=== PATIENT | male | born 1970 | race Caucasian/White ===

== ENCOUNTER 2020-06-30 06:51 | Observation (INO) ==
--- NOTE | 2020-06-24 15:30 | Anesthesiology Consultation ---
Date of Service June 24, 2020 Assessment & Plan (1) Encounter for pre-operative examination: - COVID screening: Per assessment on 06/09: Travel screen negative (since 05/10), no known COVID-19 positive contacts or current COVID-19 related symptoms. Surg [place] arranging preop COVID testing (scheduled 06/24; [facility]). Awaiting results. - PCP clearance request 03/07/20: "yes" patient medically cleared for surgery. Chart Review Chart Review: Acceptable Risk for Surgery (pending preop labs) and Patient NOT seen in Pre Admission Testing History Surgery Operation Date: 06/30/20 11:55 Proposed Procedures p Right Total Hip Arthroplasty - Miraz Villeda MD Height/Weight Height: 6 ft 1 in Weight: 112.491 kg Allergies Allergy/AdvReac Type Severity Reaction Status Date / Time ranitidine Allergy Unknown Hives Verified 06/09/20 09:10 Medications Home Medications Medication Instructions Recorded Confirmed Last Taken acetaminophen [Tylenol Extra 1,000 mg PO UD PRN 09/14/19 06/09/20 Unknown Strength] amlodipine 5 mg PO QAM 09/14/19 06/09/20 06/07/20 fluticasone propionate [Flonase 1 - 2 spray INTRANASAL UD PRN 09/14/19 06/09/20 Unknown Allergy Relief] gabapentin 300 mg PO TID 09/14/19 06/09/20 06/08/20 08:00 ibuprofen 400 mg PO UD PRN 09/14/19 06/09/20 06/04/20 lisinopril 10 mg PO BID 02/24/20 06/09/20 06/07/20 Past Medical History Medical History (Updated 06/24/20 @ 15:25 by Daja Perez) Degenerative disc disease cervical Depression stable HTN (hypertension) Low back pain Obesity Seasonal allergies Spondylolisthesis, lumbar region Past Family History Family History Mother Family history of diabetes mellitus Past Surgical History Surgical History History of colonoscopy History of nasal septoplasty History of total left knee replacement History of vasectomy Social History Smoking Status: Current some day smoker tobacco type: cigars Smoking cigarettes per day: 1 cigar every 3-4 months Do You Dip or Chew Tobacco: Yes (light use > not daily- PAT RN advised none AM DOS) Hx Alcohol Use: Yes Alcohol type: beer, wine and hard liquor alcohol intake frequency: 0-2 drinks per day (1-2 drinks liquor per day*) Hx Substance Use: No substance use type: does not use Testing Electrocardiogram Date: 02/01/20 Findings: + NSR @ (65) Echocardiogram Date: 02/26/20 EF: 55-60% LV Function: normal Other Findings: + LVH (mild/concentric) Valvular Disease: + no significant valvular disease Mild pulmonary hypertension with estimated right ventricular/pulmonary artery systolic pressure of 32.4 mmHg.
--- NOTE | 2020-06-29 12:15 | History & Physical Report ---
Date of Service June 29, 2020 Assessment & Plan Admission and Anticipated Discharge Date Admission Date: PRE-OP Diagnosis: Right hip osteoarthritis Planned Procedure: Right total hip arthroplasty Plan: Patient is scheduled to undergo this procedure with Dr. Mirza Villeda at the [facility] on June 30, 2020. Risks and complications of the procedure such as infection, bleeding, pain, scarring, nerve blood vessel damage, weakness, wound problems, stiffness, incomplete relief of symptoms, hardware failure, hardware loosening, wear, fracture, tendon or ligament injury, dislocation, leg length inequality, blood clots, embolism, heart attack, stroke and were explained to the patient his visit today by Dr. Villeda. Informed consent form the procedure was obtained. Patient also understands risks of proceeding with surgical intervention during the COVID-19 pandemic. Currently he is asymptomatic and understands he will be tested prior to the procedure. We have obtained preoperative medical clearance from [facility] Dr. Stephon Myrick. Patient will proceed to the lab immediately to obtain a CBC with differential, a complete metabolic panel, PT/INR, urinalysis, urine culture and sensitivity, hemoglobin A1c, and a nasal culture for MRSA. His EKG is up to date. During today's visit we reviewed the total hip packet with his precautions, discussed discharge planning, talked about antibiotic use following total joint surgery, discussed lectures offered by [facility] in regards to arthroplasty and I provided the patient with paperwork to obtain a handicap placard for his vehicle. I also advised him to purchase a hip kit prior to the procedure and he states that he purchased after his last preoperative visit. Patient states that he has already has a walker, raised toilet seat and a shower chair. Patient was also advised that we will provide him with a prescription for narcotic pain medication upon discharge from the hospital for postoperative pain control. He will be on aspirin for DVT prophylaxis along with diclofenac sodium and Tylenol for additional pain relief. Patient is scheduled for his 2-week postoperative follow-up with myself on July 15 at 2:15 PM. Patient states that he will most likely obtain in-house physical therapy for the first 2 weeks after surgery. Patient verbalized understanding all information provided during today's visit. He thanks for the care that he received. Patient states if he has questions or concerns should arise prior to his surgery, he will contact clinic. History of Present Illness Chief Complaint: Right hip pain Primary Care Provider: Stephon Myrick DO History of Present Illness (including history relevant to procedure): This 50-year-old male presents the clinic today for his preoperative history and physical. Patient complains of a 1+ year history of significant right hip pain that became much worse this past June. Patient has not undergone extensive physical therapy, corticosteroid injections, the use of nonsteroidal agents without significant relief of his symptoms. He feels it laterally and extending anteriorly into the groin. In June, he felt a pop in the hip. Since that time, a couple of times a week, he will be standing and shift his weight and feels a pop in the groin. He is having trouble taking off his socks and shoes as well as putting on his pants and taking them off. Sitting for long periods of times is extremely uncomfortable for him, especially when he gets up. It is significantly affecting his quality of life and he is interested in his surgical options. Patient was initially scheduled for surgery on March [id number], however surgery was delayed due to an influx of Covid patients at the hospital. Review Of Systems: 14 point review of systems performed is unremarkable except for those things previously stated in the HPI and past medical history. Past Medical History: Problems: Osteoarthritis of right hip Pre-op exam Right hip pain Trochanteric bursitis, right hip Tobacco user Right lumbar radiculopathy Spondylolisthesis, lumbosacral region Procedure History Procedure Procedure Date Comments Lumbar epidural steroid injection 06/08/2020 Allergies and Sensitivities: Zantac(Hives) Family history: Hypertension Social history: Completely unremarkable Current Home Meds: (Last Updated 06/15 10:20) FLUoxetine (PROzac) 10 mg PO 2 a day amLODIPine (amLODIPine 5 mg oral tablet) TAKE 1 TABLET DAILY (DOSE CHANGE) cyclobenzaprine (cyclobenzaprine 10 mg oral tablet) PRN fluticasone nasal (Flonase) gabapentin (Neurontin 300 mg oral capsule) 300 mg PO tid lisinopril (lisinopril 10 mg oral tablet) 20 mg PO Daily Start one TAB per day for first week Plan: Patient is scheduled to undergo this procedure with Dr. Mirza Villeda at the [facility] on June 30, 2020. Risks and complications of the procedure such as infection, bleeding, pain, scarring, nerve blood vessel damage, weakness, wound problems, stiffness, incomplete relief of symptoms, hardware failure, hardware loosening, wear, fracture, tendon or ligament injury, dislocation, leg length inequality, blood clots, embolism, heart attack, stroke and were explained to the patient his visit today by Dr. Villeda. Informed consent form the procedure was obtained. Patient also understands risks of proceeding with surgical intervention during the COVID-19 pandemic. Currently he is asymptomatic and understands he will be tested prior to the procedure. We have obtained preoperative medical clearance from the patient's primary care provider Dr. Stephon Myrick. Patient will proceed to the lab immediately to obtain a CBC with differential, a complete metabolic panel, PT/INR, urinalysis, urine culture and sensitivity, hemoglobin A1c, and a nasal culture for MRSA. His EKG is up to date. During today's visit we reviewed the total hip packet with his precautions, discussed discharge planning, talked about antibiotic use following total joint surgery, discussed lectures offered by [facility] in regards to arthroplasty and I provided the patient with paperwork to obtain a handicap placard for his vehicle. I also advised him to purchase a hip kit prior to the procedure and he states that he purchased after his last preoperative visit. Patient states that he has already has a walker, raised toilet seat and a shower chair. Patient was also advised that we will provide him with a prescription for narcotic pain medication upon discharge from the hospital for postoperative pain control. He will be on aspirin for DVT prophylaxis along with diclofenac sodium and Tylenol for additional pain relief. Patient is scheduled for his 2-week postoperative follow-up with myself on July 15 at 2:15 PM. Patient states that he will most likely obtain in-house physical therapy for the first 2 weeks after surgery. Patient verbalized understanding all information provided during today's visit. He thanks for the care that he received. Patient states if he has questions or concerns should arise prior to his surgery, he will contact clinic. Allergies Allergy/AdvReac Type Severity Reaction Status Date / Time ranitidine Allergy Unknown Hives Verified 06/09/20 09:10 Home Medications Medication Instructions Recorded Confirmed Type acetaminophen [Tylenol Extra 1,000 mg PO UD PRN 09/14/19 06/09/20 History Strength] amlodipine 5 mg PO QAM 09/14/19 06/09/20 History fluticasone propionate [Flonase 1 - 2 spray INTRANASAL UD PRN 09/14/19 06/09/20 History Allergy Relief] gabapentin 300 mg PO TID 09/14/19 06/09/20 History ibuprofen 400 mg PO UD PRN 09/14/19 06/09/20 History lisinopril 10 mg PO BID 02/24/20 06/09/20 History Past Med/Surg History Medical History Degenerative disc disease cervical Depression stable HTN (hypertension) Low back pain Obesity Seasonal allergies Spondylolisthesis, lumbar region Surgical History History of colonoscopy History of nasal septoplasty History of total left knee replacement History of vasectomy Family History Mother Family history of diabetes mellitus Social History Smoking Status: Current some day smoker Cigarettes Per Day: 1 cigar every 3-4 months; Second Hand Exposure: No; Hx Alcohol Use: Yes Alcohol type: beer, wine and hard liquor Hx Substance Use: No Preferred Language: Lao Communication Ability: Effective Warp Drawer Required: No Beliefs That Will Affect Care: None Current Living Situation: Spouse Feels Safe at Home: Yes Assistive Devices: None Review of Systems All systems reviewed & are unremarkable except as noted in HPI & below Physical Exam Physical Exam: General: Alert and oriented x3 with proper grooming and hygiene Eyes: Pupils are equal and react to light with accommodation. Extraocular movements are intact Throat: Deferred due to COVID-19 precautions Cardiac: Regular rate and rhythm with no murmurs or gallops appreciated Lungs: Clear to auscultation throughout with no wheezing, rales or rhonchi Abdomen: Obese, nondistended, nontender with normal active bowel sounds Extremities: hip flexion up to 85 degrees compared with 125 degrees in the other side. External rotation is limited to 30 degrees versus 50 degrees on the other side. Internal rotation is to 5 degrees versus 15 degrees on the other side. He has a positive Stinchfield test. Positive ROBERTO test. Distally neurovascularly intact. Neuro: Cranial nerves II through XII are intact with no motor or sensory deficit Skin: Normal in appearance no open skin areas or discharge Results & Data ([facility]) Diagnostic Findings Studies (relevant to the procedure): X-rays done today, 3 views of the right hip, are compared with his films done 1 year ago. There has been interval complete loss of his superior joint space and he has now [id number] arthritis in the right hip.
[~2020-06-30 06:51] MED LIST: ACETAMINOPHEN 500 MG TAB PO SCH; BUPIVACAINE 0.5 % 5 MG/1 ML PF 10ML VIAL ONE; CeleBREX 200 MG CAP PO SCH; LR 500ML BOLUS, THEN 15ML/HR IV SCH; LR 60ML/HR IV SCH; METOCLOPRAMIDE HCL 10 MG TABLET PO SCH; ROPIVACAINE 0.5% HCL/PF 150 MG, BUPIVACAINE 0.75% MPF 20 ML, EPINEPHrine 0.15 MG, Ketor... INFIL SCH; Scopolamine 1 MG TDSY TD SCH; TRANEXAMIC ACID 1,000 MG **IV Intra-op IV SCH; TRANEXAMIC ACID 1,000 MG **IV Pre-op IV SCH; ceFAZolin 2000MG 2,000 MG/15 ML SYR IV SCH; dexAMETHasone 4 MG TAB PO SCH; traMADol HCL 50 MG TABLET PO SCH
[2020-06-30] MEDS ORDERED: LIDOCAINE HCL 2% 2 ML VIAL/AMP(20MG/ML) INFIL ONE (07:36)
[2020-06-30] MEDS ORDERED: MIDAZOLAM HCL 1 MG/ML 2ML VIAL ONE ×3 (07:36→10:13)
[2020-06-30] MEDS ORDERED: PROPOFOL IV EMULSION 10 MG/ML 20 ML VIAL IV ONE ×2 (07:36→10:42)
[2020-06-30] MEDS ORDERED: ATROPINE SULFATE 0.1 MG/ML 10ML SYR IV PRN (08:35)
[2020-06-30] MEDS ORDERED: fentaNYL citrate 100 MCG/2 ML VIAL IV PRN (08:35)
[2020-06-30] MEDS ORDERED: HYDROmorphone INJ 2 MG/ML SYR/VIAL IV PRN (08:35)
[2020-06-30] MEDS ORDERED: ePHEDrine sulfate 50 MG/ML AMP IV PRN (08:35)
[2020-06-30] MEDS ORDERED: ONDANSETRON INJ 2 MG/ML 2 ML VIAL IV PRN ×2 (08:35→11:09)
--- NOTE | 2020-06-30 08:53 | History & Physical Bridge Note ---
Date of Service June 30, 2020 History & Physical Bridge Note I have examined the patient, reviewed the History & Physical and in the interval since the performance of the History & Physical I have noted the following changes of clinical significance: no changes noted
[2020-06-30] MEDS ORDERED: ORTHO JOINT ANESTHETIC ONE (09:06)
[2020-06-30] MEDS ORDERED: PHENYLEPHRINE 100MCG/ML 5ML SYR ONE (10:08)
--- NOTE | 2020-06-30 10:57 | Operative Report ---
Post Operative Report Pre & Post Diagnosis Operation Date: 06/30/20 09:35 Pre-Op Diagnosis: Right Hip Osteoarthritis Post-Op Diagnosis: Right Hip Osteoarthritis I identified the patient and participated in the time-out.: Yes Procedure Operation Date: 06/30/20 09:35 Actual Procedures p Right Total Hip Arthroplasty(Right) - Mirza Villeda MD Surgeon Mirza Villeda MD Respiratory Tech ELADIA Dyer PA-C Estimated Blood Loss 150 Findings Consistent with Post-Op Diagnosis Specimens Right femoral head Anesthesia Type Spinal MAC Complications none Disposition Accompanied Patient To Recovery: No Disposition: Recovery Room Indications 50-year-old male with right hip arthritis refractory to conservative management. X-rays demonstrate [id number] arthritis. Affecting his activities of daily living. I had a long discussion with him about the risks and benefits of surgery, alternatives to surgery, and expected outcomes. After reviewing all these he elected to proceed with surgery. All questions were answered. Informed consent was signed. Description of Procedure Patient was identified in the preoperative holding area and the surgical site, right hip, was marked. A spinal anesthetic was placed, then the patient was brought back to the main operating room, placed in the operating table and moved into the lateral decubitus position. Axillary roll was placed. All bony prominences were padded. Perioperative antibiotics and tranexamic acid 1 gram IV were administered. Operative extremity was prepped and draped in the normal sterile fashion. Prior to incision a multidisciplinary timeout was called. All in the room were in agreement. We began by making an incision for a posterior approach to the hip. We dissected down through subcutaneous tissues to the level of the fascia. The fascia was incised in line with the incision. Charnley bow was placed. The trochanteric bursa was excised. The piriformis and short external rotators were dissected off the posterior aspect of the hip. A box cut was made in the capsule. The femoral head was dislocated. The femoral neck cut was made at our preoperative template. The acetabulum was then exposed. The labrum was sharply excised. Contents of the cotyloid fossa were removed with electrocautery. We then began reaming at a size 8 mm less than our preoperative template. We reamed up by 1 [address] the way up to a size 56 mm cup. This gave us good bleeding cancellus bone circumferentially. The acetabulum was then irrigated out and dried. The real [place] Gription cup was then impacted down into position with 45 degrees of lateral opening and 25 degrees of anteversion. A single cancellous bone screw was placed up into the ilium. Excellent fixation was obtained. An Altrx polyethylene liner for a 36 mm femoral head was then impacted into the shell. The locking mechanism was checked to ensure that it had engaged which it had. Next we turned our attention to the femur. The lateral neck was removed with a box osteotome. Intramedullary guide was used followed by the lateralizing reamer. We then reamed up to a size 6 [place] stem. We then broached all the way up to a size 6. We began trialing with a high offset neck and a +5 head. Hip was reduced. Leg lengths were symmetric. The hip was stable in extension and external rotation, and stable in the sleeper position. At 90 degrees of hip flexion the hip could be internally rotated 65 degrees before levering out of the cup. I was very happy with the stability exam. Therefore the hip was disl ocated and the femoral trial was removed. The femoral canal was irrigated and dried. The real size 6 high offset [place] femoral stem was opened up. This was impacted down into position. It sat at the same level as the femoral trial. Therefore the 36 mm ceramic femoral head with a +5 mm offset was opened up and gently impacted down onto the trunnion. The hip was atraumatically reduced. Another 1 gram of IV tranexamic acid was started prior to closure. The wound was irrigated out with sterile Betadine solution. The periarticular injection cocktail was then placed. The short external rotators, piriformis, and posterior capsule were repaired through drill holes in the greater trochanter using #2 Vicryl. The fascia was run with a looped #1 PDS. The subcutaneous layer was closed with #1 PDS. The dermal layer was closed with 2-0 Vicryl. Zip line was used for the skin followed by a Silverlon dressing. A compressive dressing was then placed. The patient was then rolled supine. Leg lengths were rechecked and were symmetric. An abduction pillow was placed. Sedation was lifted and the patient was transferred to recovery room in stable condition. Summary of implants: Depuy [place] Gription Acetabular Shell Sector Cup, 56 mm outer diameter [place] Cancellous bone screw, 6.5 x 40 mm [place] Altrx Polyethylene Acetabular Liner, Neutral, with a 36 mm inner diameter DePuy [place] Femoral stem with Por[place]oat, 12/14 taper, size 6 high offset 36 mm ceramic femoral head with +5 offset Postoperative course: Patient will be admitted to the hospital from the recovery room. Patient will be weightbearing as tolerated with posterior hip precautions. Aspirin for DVT prophylaxis I attest to the content of the Intraoperative Record and any orders documented therein. Any exceptions are noted below.
--- NOTE | 2020-06-30 11:08 | Operative Report ---
Post Operative Report Pre & Post Diagnosis Operation Date: 06/30/20 09:35 Pre-Op Diagnosis: Right Hip Osteoarthritis Post-Op Diagnosis: Right Hip Osteoarthritis I identified the patient and participated in the time-out.: Yes Procedure Operation Date: 06/30/20 09:35 Actual Procedures p Right Total Hip Arthroplasty(Right) - Mirza Villeda MD Surgeon Mirza Villeda MD Preparing Box Tender ELADIA Dyer PA-C Estimated Blood Loss 150 Findings Consistent with Post-Op Diagnosis Specimens femoral head Complications none Disposition Accompanied Patient To Recovery: Yes Disposition: Recovery Room Description of Procedure I was present during the entire case assisting with positioning, prepping, draping, wound retraction, wound closure, dressing and abduction pillow placement. No fellow present. Please see Dr. Villeda procedure note for specifics of the case. I attest to the content of the Intraoperative Record and any orders documented therein. Any exceptions are noted below.
[2020-06-30] MEDS ORDERED: ALUMINUM/MAGNESIUM SUSP 30 ML UDC PO PRN (11:09)
[2020-06-30] MEDS ORDERED: NALOXONE HCL 0.4 MG/1 ML VIAL/CARP IV PRN (11:09)
[2020-06-30] MEDS ORDERED: oxyCODONE HCL IR 5 MG TAB (IMMEDIATE RELEASE) PO PRN (11:09)
[2020-06-30] MEDS ORDERED: bisacodyL 10 MG SUPP PR PRN (11:09)
[2020-06-30] MEDS ORDERED: METOCLOPRAMIDE HCL INJ 5 MG/ML 2 ML VIAL IV PRN (11:09)
[2020-06-30] MEDS ORDERED: HYDROmorphone INJ 0.5 MG/0.5 ML SYR IV PRN (11:09)
[2020-06-30] MEDS ORDERED: MAGNESIUM HYDROXIDE SUSP 30 ML UDC PO PRN (11:09)
[2020-06-30] MEDS ORDERED: diphenhydrAMINE 50 MG/ML VIAL IV PRN (11:09)
[2020-06-30] MEDS ORDERED: TAMSULOSIN HCL 0.4 MG CAP PO PRN (11:09)
[2020-06-30] MEDS ORDERED: FLUTICASONE PROPIONATE NA SPR 16 GM BTL NAE PRN (11:12)
[2020-06-30] MEDS ORDERED: ACETAMINOPHEN HOME PACK 500 MG TABLET PO PRN (11:12)
[2020-06-30] MEDS ORDERED: IBUPROFEN 200 MG TAB PO PRN (11:12)
--- NOTE | 2020-06-30 11:40 | XRay Report ---
XR pelvis 1-2V routine CLINICAL HISTORY: Post Surgical COMPARISON: 03/04/2020 DISCUSSION: There are postsurgical changes of a total right hip arthroplasty. There is no dislocation . IMPRESSION: Postsurgical changes of a total right hip arthroplasty. ACT 112: Negative or not required by law. Electronically signed by: Frederic Gregg M.D. 06/30/2020 11:38 AM
--- NOTE | 2020-06-30 11:56 | Anesthesiology Progress Note ---
Date of Service June 30, 2020 Anesthesia Post Procedure Vital Signs Vital Signs: Temp Pulse Pulse Resp BP BP Pulse Ox 06/30/20 11:45 60 22 107/67 95 06/30/20 11:30 64 20 110/69 95 06/30/20 11:20 64 16 100/58 L 97 06/30/20 11:10 66 20 102/64 95 06/30/20 11:05 36.6 C 72 20 112/69 96 06/30/20 07:50 36.8 C 60 18 137/88 97 06/30/20 07:26 37.6 C H 60 18 140/102 H 97 Pain Intensity Right Hip: Pain Intensity: 7 Transfer of Care Handoff Completed per policy Notes Mental Status: alert / awake / arousable and participated in evaluation Patient Amnestic to Procedure: Yes Nausea / Vomiting: adequately controlled Pain: adequately controlled Airway Patency, RR, SpO2: stable & adequate BP & HR: stable & adequate Hydration State: stable & adequate Neuraxial Anesthesia: was administered and sensory block is resolving Anesthetic Complications: no major complications apparent
[2020-06-30] MEDS ORDERED: PHENYLEPHRINE HCL 10 MG/ML VIAL ONE (12:29)
[2020-06-30] MEDS: SODIUM CHLORIDE 0.9% 1000ML 1,000 ML IV SCH ×2 (12:30→22:09)
[2020-06-30] MEDS: KETOROLAC TROMETHAMINE 15 MG/ML VIAL IV SCH ×2 (14:52→20:55)
[2020-06-30] MEDS: GABAPENTIN 300 MG CAP PO SCH ×2 (14:52→20:55)
[2020-06-30] MEDS: ACETAMINOPHEN 500 MG TAB PO SCH ×2 (14:52→20:56)
[2020-06-30] MEDS: Scopolamine CHECK PATCH PLACEMENT SCH ×2 (16:52→23:24)
[2020-06-30] MEDS: ceFAZolin 2000MG 2,000 MG/15 ML SYR IV SCH (17:52)
[2020-06-30] MEDS ORDERED: TRANEXAMIC ACID / 0.7% NACL 1,000 MG/100 ML BAG IV SCH (18:00)
[2020-06-30] MEDS: DOCUSATE SODIUM 100 MG CAP PO SCH (20:55)
[2020-06-30] MEDS: lisinopril 10 MG TAB PO SCH (20:55)
[2020-06-30] MEDS: ASPIRIN 81 MG ECTAB PO SCH (20:55)
[2020-06-30] MEDS ORDERED: CeleBREX 200 MG CAP PO SCH (21:00)
[2020-06-30] MEDS ORDERED: SENNA 8.6 MG TAB PO SCH (21:00)
[2020-07-01] MEDS: KETOROLAC TROMETHAMINE 15 MG/ML VIAL IV SCH ×2 (01:05→08:21)
[2020-07-01] MEDS: ceFAZolin 2000MG 2,000 MG/15 ML SYR IV SCH (01:05)
[2020-07-01] MEDS: ACETAMINOPHEN 500 MG TAB PO SCH (06:02)
[2020-07-01 06:28] LABS: Basophils # (auto) 0.01 K/uL (0-0.2); Basophils % (auto) 0.1 %; Hematocrit (blood only) 36.3 % (42-52); Hemoglobin 12.6 g/dL (14.0-18.0); Immature Granulocytes # (auto) 0.02 K/uL (0.00-0.02); Immature Granulocytes % (auto) 0.2 %; Lymphocytes # (auto) 1.67 K/uL (1.2-3.4); Lymphocytes % (auto) 13.8 %; Mean Corpuscular Hemoglobin 30.4 pg (25-34); Mean Corpuscular Hgb Conc 34.7 g/dL (32-36); Mean Corpuscular Volume 87.5 fL (80-100); Mean Platelet Volume 10.1 fL (7.4-10.4); Monocytes # (auto) 0.93 K/uL (0.11-0.59); Monocytes % (auto) 7.7 %; Neutrophils # (auto) 9.51 K/uL (1.4-6.5); Neutrophils % (auto) 78.2 %; Platelet Count 220 K/uL (130-400); RDW Coefficient of Variation 12.6 % (11.5-14.5); RDW Standard Deviation 40.6 fL (36.4-46.3); Red Blood Count 4.15 M/uL (4.7-6.1); White Blood Count 12.14 K/uL (4.8-10.8)
[2020-07-01 07:07] LABS: BUN Creatinine Ratio 15.6 (10-20); Calcium 8.9 mg/dl (8.5-10.1); Creatinine Clr Calc Pharmacy 97.3 ml/min; Est GFR (African American) 81.7; Est GFR (Non-African American) 70.5; Potassium 3.9 mmol/L (3.5-5.1)
[2020-07-01] MEDS ORDERED: dexAMETHasone 4 MG TAB PO SCH (08:00)
[2020-07-01] MEDS: Scopolamine CHECK PATCH PLACEMENT SCH (08:21)
[2020-07-01] MEDS: DOCUSATE SODIUM 100 MG CAP PO SCH (08:22)
[2020-07-01] MEDS: GABAPENTIN 300 MG CAP PO SCH (08:22)
[2020-07-01] MEDS: lisinopril 10 MG TAB PO SCH (08:22)
[2020-07-01] MEDS: ASPIRIN 81 MG ECTAB PO SCH (08:23)
[2020-07-01] MEDS ORDERED: amLODIPine BESYLATE 5 MG TAB PO SCH (09:00)
[2020-07-01] MEDS ORDERED: MULTIVITAMIN TAB PO SCH (09:00)
--- NOTE | 2020-07-01 10:42 | Orthopedic Progress Note ---
Date of Service July 01, 2020 Assessment & Plan (1) S/P total hip arthroplasty: Weightbearing as tolerated with walker assistance PT/OT Keep Silverlon dressing intact Total hip precautions Abduction pillow use x6 weeks Pain control with p.o. medication DVT prophylaxis with aspirin and LISA stockings Ice with EZ WRAP Discharge home today with in-home therapy with [facility] home care Follow-up with [facility] orthopedics as previously scheduled With questions contact our clinic at [phone] Admission and Anticipated Discharge Date Admission Date: June 30, 2020 Subjective This 50-year-old male is day 1 status post right total hip arthroplasty. He states he is doing very well and his pain is essentially 0. He states he has completed physical therapy and occupational therapy this morning without difficulty. States that he will be ready to go home after lunch today. Currently he denies fever, chills, sweats, lethargy, chest pain, shortness of breath or numbness or tingling in his right lower extremity. Review of Systems Review of Systems: All systems reviewed & are unremarkable except as noted in Subjective Physical Exam Physical Exam: Right hip: Silverlon dressing is clean dry and intact. Patient is able to perform a straight leg raise test without difficulty. He is able to actively dorsi and plantarflex his foot without difficulty. Logroll test is negative. Stinchfield test negative. Knee range of motion from 0 to 90 degrees causes no pain. Quad strength is 4-5. Light passive internal and external hip rotation causes some slight twinge of pain. Patient's calf soft supple nontender to palpation. He is able to easily transition from a seated to a standing position. He is neurovascularly intact the right lower extremity. Peripheral pulses are 2+. Capillary refill is less than 2 seconds. Results & Data ([facility]) Vital Signs (Past 12 Hours) Vital Signs Temp Pulse Pulse Resp BP Pulse Ox 07/01/20 08:24 56 L 07/01/20 08:08 36.6 C 44 L 18 112/71 95 07/01/20 04:22 36.6 C 62 16 115/71 96 06/30/20 23:23 36.6 C 59 L 16 110/68 99 Laboratory Results 07/01/20 07/01/20 Range/Units 05:58 05:58 WBC 12.14 H (4.8-10.8) K/uL RBC 4.15 L (4.7-6.1) M/uL Hgb 12.6 L (14.0-18.0) g/dL Hct 36.3 L (42-52) % MCV 87.5 (80-100) fL MCH 30.4 (25-34) pg MCHC 34.7 (32-36) g/dL RDW Std Deviation 40.6 (36.4-46.3) fL RDW Coeff of Francisca 12.6 (11.5-14.5) % Plt Count 220 (130-400) K/uL MPV 10.1 (7.4-10.4) fL Immature Gran % (Auto) 0.2 % Neut % (Auto) 78.2 % Lymph % (Auto) 13.8 % [place] % (Auto) 7.7 % Eos % (Auto) 0.0 % Baso % (Auto) 0.1 % Neut # (Auto) 9.51 H (1.4-6.5) K/uL Lymph # (Auto) 1.67 (1.2-3.4) K/uL [place] # (Auto) 0.93 H (0.11-0.59) K/uL Eos # (Auto) 0.00 (0-0.5) K/uL Baso # (Auto) 0.01 (0-0.2) K/uL Immature Gran # (Auto) 0.02 (0.00-0.02) K/uL Sodium 140 (136-145) mmol/L Potassium 3.9 (3.5-5.1) mmol/L Chloride 110 H (98-107) mmol/L Carbon Dioxide 22 (21-32) mmol/L Anion Gap 8.0 (3-11) BUN 18 (7-18) mg/dl Creatinine 1.18 (0.6-1.4) mg/dl Est Cr Clr Drug Dosing 97.3 ml/min Est GFR ( Amer) 81.7 Est GFR (Non-Af Amer) 70.5 BUN/Creatinine Ratio 15.6 (10-20) Glucose 113 H (70-99) mg/dl Calcium 8.9 (8.5-10.1) mg/dl
--- NOTE | 2020-07-01 10:58 | Discharge Summary ---
Date of Service July 01, 2020 Admission HPI Per Admitting Provider History of Present Illness (including history relevant to procedure): This 50-year-old male presents the clinic today for his preoperative history and physical. Patient complains of a 1+ year history of significant right hip pain that became much worse this past June. Patient has not undergone extensive physical therapy, corticosteroid injections, the use of nonsteroidal agents without significant relief of his symptoms. He feels it laterally and extending anteriorly into the groin. In June, he felt a pop in the hip. Since that time, a couple of times a week, he will be standing and shift his weight and feels a pop in the groin. He is having trouble taking off his socks and shoes as well as putting on his pants and taking them off. Sitting for long periods of times is extremely uncomfortable for him, especially when he gets up. It is significantly affecting his quality of life and he is interested in his surgical options. Patient was initially scheduled for surgery on March [id number], however surgery was delayed due to an influx of Covid patients at the hospital. Review Of Systems: 14 point review of systems performed is unremarkable except for those things previously stated in the HPI and past medical history. Past Medical History: Problems: Osteoarthritis of right hip Pre-op exam Right hip pain Trochanteric bursitis, right hip Tobacco user Right lumbar radiculopathy Spondylolisthesis, lumbosacral region Procedure History Procedure Procedure Date Comments Lumbar epidural steroid injection 06/08/2020 Allergies and Sensitivities: Zantac(Hives) Family history: Hypertension Social history: Completely unremarkable Current Home Meds: (Last Updated 06/15 10:20) FLUoxetine (PROzac) 10 mg PO 2 a day amLODIPine (amLODIPine 5 mg oral tablet) TAKE 1 TABLET DAILY (DOSE CHANGE) cyclobenzaprine (cyclobenzaprine 10 mg oral tablet) PRN fluticasone nasal (Flonase) gabapentin (Neurontin 300 mg oral capsule) 300 mg PO tid lisinopril (lisinopril 10 mg oral tablet) 20 mg PO Daily Start one TAB per day for first week Plan: Patient is scheduled to undergo this procedure with Dr. Mirza Villeda at the [facility] on June 30, 2020. Risks and complications of the procedure such as infection, bleeding, pain, scarring, nerve blood vessel damage, weakness, wound problems, stiffness, incomplete relief of symptoms, hardware failure, hardware loosening, wear, fracture, tendon or ligament injury, dislocation, leg length inequality, blood clots, embolism, heart attack, stroke and were explained to the patient his visit today by Dr. Villeda. Informed consent form the procedure was obtained. Patient also understands risks of proceeding with surgical intervention during the COVID-19 pandemic. Currently he is asymptomatic and understands he will be tested prior to the procedure. We have obtained preoperative medical clearance from the patient's primary care provider Dr. Stephon Myrick. Patient will proceed to the lab immediately to obtain a CBC with differential, a complete metabolic panel, PT/INR, urinalysis, urine culture and sensitivity, hemoglobin A1c, and a nasal culture for MRSA. His EKG is up to date. During today's visit we reviewed the total hip packet with his precautions, discussed discharge planning, talked about antibiotic use following total joint surgery, discussed lectures offered by [facility] in regards to arthroplasty and I provided the patient with paperwork to obtain a handicap placard for his vehicle. I also advised him to purchase a hip kit prior to the procedure and he states that he purchased after his last preoperative visit. Patient states that he has already has a walker, raised toilet seat and a shower chair. Patient was also advised that we will provide him with a prescription for narcotic pain medication upon discharge from the hospital for postoperative pain control. He will be on aspirin for DVT prophylaxis along with diclofenac sodium and Tylenol for additional pain relief. Patient is scheduled for his 2-week postoperative follow-up with myself on July 15 at 2:15 PM. Patient states that he will most likely obtain in-house physical therapy for the first 2 weeks after surgery. Patient verbalized understanding all information provided during today's visit. He thanks for the care that he received. Patient states if he has questions or concerns should arise prior to his surgery, he will contact clinic. Admission Exam Per Admitting Provider General: Alert and oriented x3 with proper grooming and hygiene Eyes: Pupils are equal and react to light with accommodation. Extraocular movements are intact Throat: Deferred due to COVID-19 precautions Cardiac: Regular rate and rhythm with no murmurs or gallops appreciated Lungs: Clear to auscultation throughout with no wheezing, rales or rhonchi Abdomen: Obese, nondistended, nontender with normal active bowel sounds Extremities: hip flexion up to 85 degrees compared with 125 degrees in the other side. External rotation is limited to 30 degrees versus 50 degrees on the other side. Internal rotation is to 5 degrees versus 15 degrees on the other side. He has a positive Stinchfield test. Positive ROBERTO test. Distally neurovascularly intact. Neuro: Cranial nerves II through XII are intact with no motor or sensory deficit Skin: Normal in appearance no open skin areas or discharge Principal Diagnosis Right hip osteoarthritis Discharge Exam Right hip: Silverlon dressing is clean dry and intact. Patient is able to perform a straight leg raise test without difficulty. He is able to actively dorsi and plantarflex his foot without difficulty. Logroll test is negative. Stinchfield test negative. Knee range of motion from 0 to 90 degrees causes no pain. Quad strength is 4-5. Light passive internal and external hip rotation causes some slight twinge of pain. Patient's calf soft supple nontender to palpation. He is able to easily transition from a seated to a standing position . He is neurovascularly intact the right lower extremity. Peripheral pulses are 2+. Capillary refill is less than 2 seconds. Discharge Data Allergies Allergy/AdvReac Type Severity Reaction Status Date / Time ranitidine Allergy Unknown Hives Verified 06/30/20 07:22 Consultations 07/01/20 08:00 Consult Case Management - Discharge Planning Routine Procedures Performed Operation Date: 06/30/20 09:35 Actual Procedures p Right Total Hip Arthroplasty(Right) - Mirza Villeda MD Hospital Course (1) S/P total hip arthroplasty: Patient had an uneventful overnight stay following hip replacement surgery. He states that he will be ready to go home after lunch today. He is planning on doing in-home physical therapy with [facility] home health. He is very pleased with how his surgery went and states that he is completely pain-free at this point. Weightbearing as tolerated with walker assistance PT/OT Keep Silverlon dressing intact Total hip precautions Abduction pillow use x6 weeks Pain control with p.o. medication DVT prophylaxis with aspirin and LISA stockings Ice with EZ WRAP Discharge home today with in-home therapy with [facility] home care Follow-up with [facility] orthopedics as previously scheduled With questions contact our clinic at [phone] Total Time Total Time Spent Total Time Spent (In Minutes): 20 minutes Total Time Includes: Examination of the Patient, Discharge Planning, Medication Reconciliation and Communication With Other Providers Discharge Plan Discharge Items Patient Disposition: Home - Home Health Services Reason For Visit: Right Hip Osteoarthritis Discharge Diagnosis: Right Hip Osteoarthritis Activity: As commented below Lifting: None Bathing: Keep incision dry Bathing Comment: may shower tomorrow Sexual Activity: Wait until after follow-up appointment Exercise/Sports: Wait until after follow-up appointment Driving/Machine Use: No driving until cleared by authorization specialist Weightbearing: Right weightbearing Weightbearing Comment: as tolerated with walker assistance Non-emergency contact: Primary Care Provider Call non-emergency contact if: you have any medication questions, your pain is not controlled, your temperature is above 101.5, your wound has increased drainage and your wound pain has increased Follow-up/Referrals: Stephon Myrick DO [Primary Care Provider] - Diet: Regular Addtl Attending Provider Instructions: Post-operative Instructions Dear Patient and Family/Friends, Before you are discharged from the hospital, it is important to know what to expect when you get home after surgery. To that end, we have created this sheet of discharge instructions which covers many commonly asked questions. Make sure you go through this sheet in its entirety with your nurse before you are discharged. Please note that we will go over the specifics of your surgery and recovery when you return for your first post-operative visit. Sincerely, Dr. Villeda Medication 1. Oxycodone 5 mg: take 1-2 tabs by mouth every 4-6 hours as needed for pain. A prescription for 30 tablets will be sent to your pharmacy. 2. Diclofenac Sodium 75 mg: take 1 tab twice daily for 30 days post operatively. A prescription with 1 refill will be sent to your pharmacy. 3. Aspirin 81 mg: take 1 tab twice daily for 30 days post operatively for blood clot prevention. Please purchase. 4. Extra Strength Tylenol 500 mg: take 2 tabs every 6-8 hours as needed for pain control. Please purchase. Pain Expect to be in a fair amount of pain after surgery. Remember, our goal is not to eliminate your pain, but to make it tolerable. It is a good idea to stay ahead of your pain by taking the medications you were prescribed once you get home. Typically, the pain starts improving 3-7 days after surgery. You should start weaning off the narcotic pain medication (oxycodone, hydrocodone, hydromorphone, morphine) as soon as your pain improves. Please call our office if your pain is not adequately controlled. Ice Ice your operative site at least 5 times a day for 15-30 minutes at a time. Make sure you have a thin cloth between the ice or cooling unit and your skin to prevent dejesus bite. This is especially important if you received a nerve block. Continue icing your operative site for the first 5-7 days after surgery, then as needed. Diet/Nausea/Vomiting Start by drinking clear liquids and eating crackers. If you can tolerate this, then you may resume your normal diet. If you feel nauseated or vomit, take Zofran/ondansetron (if prescribed). Please call our office if you have intractable nausea or vomiting, or, if after hours, you may go to the Emergency Room for help. Constipation Constipation is a common side effect of narcotic pain medication. If you have not had a bowel movement within 2 days after surgery, we recommend purchasing an over the counter laxative such as Milk of Magnesia, Dulcolax, or Miralax from a local pharmacy, and taking it as instructed. Call our clinic if any questions. Slings and Braces If you were placed in a sling or brace, it must be worn at all times, including sleep. You may remove your sling or brace for physical therapy, home exercises, and showering. The length of time you will be in your brace and range of motion restrictions depends on what surgery you had; these details will be reviewed at your first post-operative appointment. Nerve block The anesthesia team sometimes places a nerve block to help with post-operative pain control. This results in significant numbness and inability to move the extremity. The nerve block usually wears off in 8-12 hours, but sometimes can last up to 24 hours. Please call our office if you are still unable to move your extremity after 24 hours, unless you received a pain pump to take home. Nerve blocks typically wear off quickly, so start taking pain medication as soon as you start feeling soreness near your surgical site. Weight bearing and Range of Motion. Do not bear any weight through your operative extremity immediately after surgery. If you had upper extremity surgery, do not lift anything with that arm. If you are in a knee brace, keep it locked in place until your follow-up. We will discuss your weight bearing, range of motion, and lifting restrictions in detail at your first post-operative appointment. Continuous Passive Motion (CPM) Machine If you were prescribed a CPM machine, it will start after your first post- operative appointment, at which time we will give you instructions on the range of motion settings and duration of treatment Physical therapy You will be given a prescription for physical therapy or occupational therapy at your first post-operative appointment. Typically, patients start therapy within 1 week of surgery Wound care and showering We will inspect your wound at your first post-operative visit, and may do a dressing change at that time. Most patients will be in a water-proof dressing that is removed 14 days after surgery. It is normal to see some dried blood on the dressing. Do not remove your dressing, paper strips or sutures yourself unless you are given permission. Showering is allowed the day after surgery. Do not scrub or remove any dressings. The wound should not be submerged underwater (i.e. in a bathtub or pool) until 4 weeks after surgery LISA stockings If you were given white stockings, these are to be worn at all times except to shower (on both legs) for the first 2 weeks after surgery. Driving You may not drive while taking narcotic pain medication or while in a cast, splint, sling or brace. You, the patient, need to make the final determination about when you are safe to drive, however, the earliest you may consider driving after surgery is below: Hand/Wrist/Elbow Surgery: 3 days Shoulder Surgery: 2 weeks Hip,/Knee/Ankle Surgery: 4 weeks Fracture repair: 6 weeks Return to Work Your return to work depends on what surgery was done and what type of work you do. Please bring any paperwork your employer needs completed to your first post-operative visit. Also, bring a description of your job duties, as this helps us to understand what risks you may face at work. Travel Avoid long distance travel (greater than 1 hour) in airplanes and cars for the first 6 weeks after surgery. If you must travel, you need to have a Doppler ultrasound done before you travel to rule out a blood clot in your legs. Follow-up You should have a follow-up appointment already scheduled 1-2 days after surgery. If not, please contact our office to make this appointment before you leave the hospital. When to call the office It is normal to have swelling and bruising in the limb that was operated on. This will improve with time. It is also normal to have fevers for the first 2 days after surgery. Reasons you should call your doctor include: Uncontrolled pain; Nausea, vomiting, or constipation that does not improve with medication; Fevers over 101.5, chills, sweats; Drainage or bleeding from the wound; Foul odor; Spreading areas of redness; Any other concerns Pending Studies at Discharge: No Stand-Alone Forms: My [facility] Medications and DC Order Prescriptions: New oxycodone 5 mg tablet 5 mg PO Q4H Qty: 30 RF: 0 diclofenac sodium 75 mg tablet,delayed release (DR/EC) 75 mg PO BID 30 Days Qty: 60 RF: 1 Continued lisinopril 20 mg Tablet 10 mg PO BID RF: 0 amlodipine 2.5 mg Tablet 5 mg PO QAM RF: 0 acetaminophen [Tylenol Extra Strength] 500 mg Tablet 1,000 mg PO UD PRN (Reason: Pain) RF: 0 gabapentin 300 mg Capsule 300 mg PO TID RF: 0 fluticasone propionate [Flonase Allergy Relief] 50 mcg/actuation [place],Suspension 1 - 2 spray intranasal UD PRN (Reason: Nasal Congestion) RF: 0 Discontinued ibuprofen 200 mg Tablet 400 mg PO UD PRN (Reason: Pain) RF: 0 Discharge Orders: Discharge Order (Routine); Ordered 07/01/20 Ordered By: Enrique Dyer Admission Data Admit Date/Time: 06/30/20 11:09 Attending Provider: Mirza Villeda Admit Provider: Mirza Villeda Primary Care Provider: Stephon Myrick Other Providers: [facility],Home Healthcare Other Interventions: Discharge Summary Assessment (RN) Last Done: 07/01/20 07:59
== END 2020-07-01 13:00 | disposition home health service (06) ==
LOC: 3E 06:51 → ASU 06:51